=== PATIENT | female | born 1975 | race Hispanic/Latino ===

== ENCOUNTER → 2018-09-15 | Outpatient (CLI) | payer OTHER ==
[~2018-09-15] MED LIST: REGADENOSON 0.4 MG/5 ML PF SYG IVP SCH
== END | disposition home or self-care (01) ==
LOC: RAH 08:52
PROVIDERS: ATTEND Internal Medicine
DX: I51.7 Cardiomegaly (principal); R06.02 Shortness of breath
CPT/HCPCS: 78452; 93017; 93306; 96374; A9500 ×2

== ENCOUNTER → 2018-10-10 | Outpatient (CLI) | payer OTHER ==
[2018-10-10 10:40] LABS: BASOPHILS % (AUTO) 0.6 % (0.0-5.0); EOSINOPHILS % (AUTO) 1.2 % (0.0-8.0); HEMATOCRIT 45.7 % (36-48); LYMPHOCYTES % (AUTO) 26.8 % (21.0-51.0); MEAN CORPUSCULAR HEMOGLOBIN 30.6 pg (27.0-33.0); MEAN CORPUSCULAR HGB CONC 32.9 g/dL (32.0-36.0); MEAN CORPUSCULAR VOLUME 92.9 fL (79-99); MONOCYTES % (AUTO) 4.9 % (3.0-13.0); NEUTROPHILS % (AUTO) 66.5 % (40.0-77.0); PLATELET COUNT (AUTO) 184 K/uL (130-400); RED BLOOD CELL COUNT(AUTO) 4.92 MIL/uL (4.00-5.50); RED CELL DISTRIBUTION WIDTH 13.2 % (11.0-15.5); WHITE BLOOD COUNT (AUTO) 7.2 K/uL (4.8-10.8)
[2018-10-10 11:05] LABS: BILIRUBIN,DIRECT 0.1 mg/dL (0.0-0.3); BILIRUBIN,TOTAL 0.4 mg/dL (0.2-1.0); CREATININE 1.1 mg/dL (0.5-1.5); POTASSIUM 4.3 mmol/L (3.5-5.1); THYROID STIMULATING HORMONE 1.38 uIU/mL (0.36-3.74); TOTAL PROTEIN, SERUM 8.7 g/dL (6.0-8.3)
== END | disposition home or self-care (01) ==
LOC: LAB 10:09
PROVIDERS: ATTEND Obstetrics & Gynecology
DX: E28.2 Polycystic ovarian syndrome (principal); I10 Essential (primary) hypertension; E66.01 Morbid (severe) obesity due to excess calories; R73.01 Impaired fasting glucose
CPT/HCPCS: 36415; 80048; 80061; 80076; 82627; 82670; 83001; 84144; 84146; 84402; 84403; 84443; 85025

== ENCOUNTER 2018-10-30 12:30 | Day surgery (SDC) | payer OTHER ==
[2018-10-29 11:49] LABS: BASOPHILS % (AUTO) 0.4 % (0.0-5.0); EOSINOPHILS % (AUTO) 0.8 % (0.0-8.0); LYMPHOCYTES % (AUTO) 20.3 % (21.0-51.0); MEAN CORPUSCULAR HEMOGLOBIN 30.9 pg (27.0-33.0); MEAN CORPUSCULAR HGB CONC 33.6 g/dL (32.0-36.0); MEAN CORPUSCULAR VOLUME 91.9 fL (79-99); MONOCYTES % (AUTO) 5.1 % (3.0-13.0); NEUTROPHILS % (AUTO) 73.4 % (40.0-77.0); PLATELET COUNT (AUTO) 190 K/uL (130-400); RED BLOOD CELL COUNT(AUTO) 4.67 MIL/uL (4.00-5.50); RED CELL DISTRIBUTION WIDTH 13.1 % (11.0-15.5)
[2018-10-29 11:55] VITALS: BP 121/69
[2018-10-29 11:58] LABS: POTASSIUM 4.1 mmol/L (3.5-5.1)
[2018-10-29 12:00] LABS: INR 1.03 (0.85-1.15); PARTIAL THROMBOPLASTIN TIME 28.5 SEC (26.3-35.5); PROTHROMBIN TIME 10.8 SEC (9.6-11.6)
--- NOTE | 2018-10-29 14:30 | NUR ---
CLARIFICATION ORDER CALLED DR. HARTLEY'S OFFICE TO CLARIFY MEDICATION ORDERS. SPOKE TO DR. HARTLEY, CLARIFIED ORDER FOR TYLENOL 325 MG 1-2 TABS PO Q6 HOURS PRN PAIN, RESTORIL 15 MG PO Q HS PRN SLEEP, ASPIRIN 81 MG Q DAY.
[~2018-10-30] VITALS: Ht 160 cm; Wt 105.6 kg
[2018-10-30] VITALS (9 sets, daily range): BP systolic 97–142; BP diastolic 55–87
[~2018-10-30 12:30] MED LIST changes: +ACETAMINOPHEN 325 MG TAB PO PRN; +ASPI-555 PO; +ASPIRIN 81MG TAB.CHEW PO SCH; +DiphenhydrAMINE HCL 50 MG/ML VIAL IVP SCH; +FAMOTIDINE/PF 20 MG/2 ML VIAL IV SCH; +ISOS30TA6 PO; +LISI40TA4 PO; +METF-444 PO; +METHYLPREDNISOLONE SOD SUCC 125MG/2ML VIAL IVP SCH; +NITR0.4T50 SL; +OMEP40CA37 PO; -REGADENOSON 0.4 MG/5 ML PF SYG IVP SCH; +SIMV20TA6 PO; +TEMAZEPAM 15 MG CAPSULE PO PRN
[2018-10-30 13:26] LABS: APPEARANCE,URINE Cloudy (CLEAR); BILIRUBIN,URINE Negative (NEGATIVE); COLOR,URINE Yellow (YELLOW); GLUCOSE, URINE (UA) Negative (NEGATIVE); KETONES,URINE 15 mg/dL (NEGATIVE); LEUKOCYTE ESTERASE ,URINE Trace (NEGATIVE); NITRATE,URINE Negative (NEGATIVE); OCCULT BLOOD,URINE Negative (NEGATIVE); PH,URINE 6.5 (5.0-8.0); PROTEIN,URINE Negative (NEGATIVE)
[2018-10-30 13:41] LABS: BACTERIA,URINE Rare /HPF (None Seen); SQUAMOUS EPITHELIAL CELL,UR Few /HPF (0-2); WBC,URINE 0-1 /HPF (0-1)
--- NOTE | 2018-10-30 13:45 | NUR ---
GLUCOSE ON ARRIVAL TO UNIT PATIENT GLUCOSE 57, NON SYMPTOMATIC. PATIENT STATED NOT FEELING ANYTHING.
[2018-10-30] MEDS ORDERED: DEXTROSE 50%-WATER 25 GM/50 ML VIAL ONE (14:02)
[2018-10-30] MEDS ORDERED: SODIUM CHLORIDE 0.9% 1000ML 1,000 ML IV ONE (15:37)
--- NOTE | 2018-10-30 17:10 | NUR ---
12.5 GM OF DEXTROSE GIVEN BY IV BY VALERY ANDREWS FOR BLOOD SUGAR OF 59.
[2018-10-30] MEDS ORDERED: HEPARIN SODIUM 1000UNIT/ML 10ML VIAL ONE (17:27)
[2018-10-30] MEDS ORDERED: NITROGLYCERIN 5 MG/ML 10 ML VIAL IV ONE (17:27)
[2018-10-30] MEDS ORDERED: BIVALIRUDIN 250 MG/VIAL IV ONE (17:27)
[2018-10-30] MEDS ORDERED: IOHEXOL 350 MG/ML 100ML INFUS..BTL IV ONE (17:28)
[2018-10-30] MEDS ORDERED: IOHEXOL-350 50ML VIAL IV ONE (17:28)
[2018-10-30] MEDS ORDERED: DEXTROSE 50%-WATER 50 ML DISP.SYRIN IV PRN ×2 (17:45→19:00)
[2018-10-30] MEDS ORDERED: GLUCAGON 1MG KIT 1 MG ML IM PRN ×2 (17:45→19:00)
[2018-10-30] MEDS ORDERED: LIDOCAINE HCL 2% 20ML ONE (17:46)
[2018-10-30] MEDS ORDERED: DiphenhydrAMINE HCL 50 MG/ML VIAL ONE (18:04)
[2018-10-30] MEDS ORDERED: FAMOTIDINE/PF 20 MG/2 ML VIAL IV ONE (18:04)
[2018-10-30] MEDS ORDERED: HYDRALAZINE HCL 20 MG/ML VIAL ONE (18:47)
[2018-10-30] MEDS ORDERED: SODIUM CHLORIDE 0.9% 1000ML 1,000 ML IV SCH (18:59)
[2018-10-30] MEDS ORDERED: ACETAMINOPHEN-CODEINE 300/30MG TAB PO PRN ×2 (19:00)
--- NOTE | 2018-10-30 19:50 | NUR ---
BLOOD SUGAR NOTED TO BE 53, PT DENIES ANY SYMPTOMS OF HYPOGLYCEMIA, 120 APPLE JUICE OFFERED, PT DRANK IT ALL.
[2018-10-30] MEDS ORDERED: INSULIN HUMULIN R 100 UNIT/ML 3ML SQ SCH (21:00)
--- NOTE | 2018-10-30 21:45 | NUR ---
PT UP TO ROOM 428. REPORT CALLED TO VALERY MAX AHEAD OF TIME. DISCHARGE INSTRUCTIONS GIVEN PRIOR TO TAKING THE PT UP. PT REPORTS NO FURTHER QUESTIONS AT THIS TIME. SITE TO RIGHT GROIN REMAINS, SLIGHTLY TENDER, BUT SOFT TO TOUCH S EVIDENCE OF ANY BLEEDING.
--- NOTE | 2018-10-30 21:55 | NUR ---
ADMISSION FROM DAY PATIENT 43 YR OLD PT S/P LEFT HEART CATH TO STAY UNTIL 4 HR HYDRATION GETS COMPLETED AND BEDREST STATUS WITH RT LEG STRAIGHT X 4 HRS. ALERT AND ORIENTED, NOT IN ANY FORM OF DISCOMFORT. IVF OF NS RAN VIA THE IV PUMP AT 150 CC/HR PER ORDER. PERCLOSE TO RT GROIN, CLEAN AND DRY, NO HEMATOMA, SLIGHTLY TENDER TO TOUCH, PULSES TO THE ANDRZEJ LOWER EXTREMITIES GOOD, WILL MONITOR CLOSELY.
--- NOTE | 2018-10-30 23:59 | NUR ---
DISCHARGE 43 YR S/P LT HEART CATH, WITH THE PERCLOSE DRESSING TO THE RT GROIN AREA. SITE SLIGHTLY TENDER ON PALPATION, NO SIGNS OF HEMATOMA. PULSES ON BLE GOOD, EXTREMITIES WARM, PT WAS GIVEN A HYDRATION WITH 600 CC'S OF NS OVER 4 HRS. BLOOD PRESSURE INITIALLY IN THE 90'S SYSTOLIC ON ADMISSION TO THE FLOOR THEN IN THE 114 MMHG SYSTOLIC PRIOR TO DISCHARGE. NO COMPLAINTS OF CHEST PAIN, NO SHORTNESS OF BREATH, VOIDED ADEQUATELY AFTER BEING ON BEDREST. WHEELED DOWN BY RADIO OPERATOR GROUND, SENT HOME VIA A PRIVATE VEHICLE WITH THE IN ATTENDANCE. IV SITE TO THE LEFT WRIST D/C, DRESSING APPLIED. NO COMPLAINTS VOICED OUT.
== END 2018-10-30 23:59 ==
LOC: DAH 12:30
PROVIDERS: ATTEND Internal Medicine Interventional Cardiology
DX: I20.8 Other forms of angina pectoris (principal); R07.9 Chest pain, unspecified; R06.02 Shortness of breath; E11.9 Type 2 diabetes mellitus without complications; Z82.49 Family history of ischemic heart disease and other diseases of the circulatory system; Z79.01 Long term (current) use of anticoagulants; Z79.899 Other long term (current) drug therapy; Z79.84 Long term (current) use of oral hypoglycemic drugs; Z83.3 Family history of diabetes mellitus; Z68.41 Body mass index [BMI] 40.0-44.9, adult; Z87.891 Personal history of nicotine dependence; E78.2 Mixed hyperlipidemia
CPT/HCPCS: 36415; 80048; 81001; 82948 ×6; 84703; 85025; 85610; 85730; 93005; 93458; A4606; C1760 ×2; C1894 ×2; J0360; J1200; J1644; J3490 ×3; J7030; J7070; Q9965; Q9967 ×2; J0583

== ENCOUNTER 2018-12-02 16:45 | Emergency (ER) | payer OTHER ==
[~2018-12-02 16:45] MED LIST changes: -ACETAMINOPHEN 325 MG TAB PO PRN; -ASPIRIN 81MG TAB.CHEW PO SCH; -DiphenhydrAMINE HCL 50 MG/ML VIAL IVP SCH; -FAMOTIDINE/PF 20 MG/2 ML VIAL IV SCH; -ISOS30TA6 PO; -METHYLPREDNISOLONE SOD SUCC 125MG/2ML VIAL IVP SCH; -TEMAZEPAM 15 MG CAPSULE PO PRN
[2018-12-02] MEDS ORDERED: ASPIRIN 325 MG TABLET ONE (17:05)
== END 2018-12-02 19:25 | disposition home or self-care (01) ==
LOC: EDH 16:45
DX: R07.89 Other chest pain (principal); I10 Essential (primary) hypertension; E11.9 Type 2 diabetes mellitus without complications; E78.5 Hyperlipidemia, unspecified; Z87.891 Personal history of nicotine dependence
CPT/HCPCS: 71045; 84484; 93005

== ENCOUNTER → 2019-05-07 | Outpatient (CLI) | payer OTHER ==
[2019-05-07 11:26] LABS: BASOPHILS % (AUTO) 0.4 % (0.0-5.0); HEMATOCRIT 41.8 % (36-48); LYMPHOCYTES % (AUTO) 20.3 % (21.0-51.0); MEAN CORPUSCULAR HEMOGLOBIN 30.9 pg (27.0-33.0); MEAN CORPUSCULAR HGB CONC 33.5 g/dL (32.0-36.0); MEAN CORPUSCULAR VOLUME 92.1 fL (79-99); MONOCYTES % (AUTO) 5.3 % (3.0-13.0); NUCLEATED RED BLOOD CELLS 0.1 % (0.0-0.19); PLATELET COUNT (AUTO) 214 K/uL (130-400); RED BLOOD CELL COUNT(AUTO) 4.54 MIL/uL (4.00-5.50); RED CELL DISTRIBUTION WIDTH 13.5 % (11.0-15.5); WHITE BLOOD COUNT (AUTO) 9.1 K/uL (4.8-10.8)
[2019-05-07 11:51] LABS: ALBUMIN 3.4 g/dL (3.5-5.0); BILIRUBIN,DIRECT 0.1 mg/dL (0.0-0.3); BILIRUBIN,TOTAL 0.4 mg/dL (0.2-1.0); POTASSIUM 4.8 mmol/L (3.5-5.1); THYROID STIMULATING HORMONE 1.62 uIU/mL (0.36-3.74); TOTAL PROTEIN, SERUM 7.8 g/dL (6.0-8.3)
== END | disposition home or self-care (01) ==
LOC: LAB 10:12
PROVIDERS: ATTEND Internal Medicine
DX: I10 Essential (primary) hypertension (principal); E28.2 Polycystic ovarian syndrome; R73.01 Impaired fasting glucose; E66.01 Morbid (severe) obesity due to excess calories; R60.0 Localized edema
CPT/HCPCS: 36415; 80048; 80061; 80076; 84443; 85025

== ENCOUNTER → 2021-06-01 | Outpatient (CLI) | payer SELFPAY ==
[~2021-06-01] MED LIST changes: -ASPI-555 PO; +ASPI-556 PO; -LISI40TA4 PO; +LISI40TA9 PO; +OMEP40CA21 PO; -OMEP40CA37 PO; +SIMV-43 PO; -SIMV20TA6 PO
[2021-06-01 13:12] LABS: BASOPHILS % (AUTO) 0.5 % (0.0-5.0); HEMATOCRIT 46.4 % (36-48); LYMPHOCYTES % (AUTO) 27.2 % (21.0-51.0); MEAN CORPUSCULAR HEMOGLOBIN 30.3 pg (27.0-33.0); MEAN CORPUSCULAR HGB CONC 32.5 g/dL (32.0-36.0); MONOCYTES % (AUTO) 4.9 % (3.0-13.0); NEUTROPHILS % (AUTO) 66.1 % (40.0-77.0); PLATELET COUNT (AUTO) 222 K/uL (130-400); RED BLOOD CELL COUNT(AUTO) 4.99 MIL/uL (4.00-5.50); RED CELL DISTRIBUTION WIDTH 13.1 % (11.0-15.5); WHITE BLOOD COUNT (AUTO) 9.5 K/uL (4.8-10.8)
[2021-06-01 13:37] LABS: ALBUMIN 3.6 g/dL (3.5-5.0); BILIRUBIN,TOTAL 0.5 mg/dL (0.2-1.0); CREATININE 0.9 mg/dL (0.5-1.5); POTASSIUM 4.5 mmol/L (3.5-5.1); THYROID STIMULATING HORMONE 2.3 uIU/mL (0.36-3.74); TOTAL PROTEIN, SERUM 7.4 g/dL (6.0-8.3)
== END | disposition home or self-care (01) ==
LOC: LAB 12:06
PROVIDERS: ATTEND Internal Medicine
DX: I10 Essential (primary) hypertension (principal); E11.9 Type 2 diabetes mellitus without complications; E78.2 Mixed hyperlipidemia; Z68.41 Body mass index [BMI] 40.0-44.9, adult
CPT/HCPCS: 36415; 80053; 80061; 84443; 85025